=== PATIENT | female | born 1970 | race American Indian/Alaskan Native ===

== ENCOUNTER 2017-10-09 21:17 | Emergency (ER) | payer OTHER ==
[2017-10-09] MEDS ORDERED: METOCLOPRAMIDE HCL INJECTION 10 MG/2 ML VIAL IVPUSH ONE (21:41)
[2017-10-09] MEDS ORDERED: SODIUM CHLORIDE 1,000 ML IV STA (21:41)
[2017-10-09] MEDS ORDERED: HYDROmorphone HCL CARPU-JECT 1 MG/1 ML DISP.SYRIN IVPB ONE ×2 (21:41→22:53)
--- NOTE | 2017-10-09 21:46 | PDOC ---
History of Present Illness - General History Source: Patient Exam Limitations: No Limitations <Gabriel Beckford - Last Filed: 10/09/17 21:42> - General History Source: Patient Exam Limitations: No Limitations - History of Present Illness Initial Comments: 10/09/17 21:48 The patient is a 46 year old female with a significant past medical history of severe migraines with frequent migraine exacerbations who presents to the ED with a headache for several days. The patient reports a constant sharp left sided headache with associated photophobia. Patient also reports one episode of nausea and vomiting since earlier today. The patient live in [place] and is currently visiting. Patient is a cousin of Dr. Trevizo Denies fever or chills. Denies neck stiffness. Denies chest pain or shortness of breath. Denies abdominal pain or diarrhea. Denies any other symptoms. <Rasta Beaver - Last Filed: 10/09/17 21:48> - General Stated Complaint: MIGRAINE Time Seen by Provider: 10/09/17 21:36 Review of Systems - Review of Systems Able to Perform ROS?: Yes Comments:: 10/09/17 21:48 GENERAL/CONSTITUTIONAL: No fever or chills. No weakness. HEAD, EYES, EARS, NOSE AND THROAT: No change in vision. No ear pain or discharge. No sore throat. CARDIOVASCULAR: No chest pain or shortness of breath. RESPIRATORY: No cough, wheezing, or hemoptysis. GASTROINTESTINAL: + nausea, vomiting No diarrhea or constipation. GENITOURINARY: No dysuria, frequency, or change in urination. MUSCULOSKELETAL: No joint or muscle swelling or pain. No neck or back pain. SKIN: No rash NEUROLOGIC: + headache, photophobia No vertigo, loss of consciousness, or change in strength/sensation. ENDOCRINE: No increased thirst. No abnormal weight change. HEMATOLOGIC/LYMPHATIC: No anemia, easy bleeding, or history of blood clots. ALLERGIC/IMMUNOLOGIC: No hives or skin allergy. All Other Systems: Reviewed and Negative <Rasta Beaver - Last Filed: 10/09/17 21:48> *Physical Exam - Physical Exam Comments: 10/09/17 21:48 GENERAL: Awake, alert, and fully oriented, in no acute distress HEAD: No signs of trauma EYES: PERRLA, EOMI, sclera anicteric, conjunctiva clear ENT: Auricles normal inspection, hearing grossly normal, nares patent, oropharynx clear without exudates. Moist mucosa NECK: Normal ROM, supple, no lymphadenopathy, JVD, or masses LUNGS: Breath sounds equal, clear to auscultation bilaterally. No wheezes, and no crackles HEART: Regular rate and rhythm, normal S1 and S2, no murmurs, rubs or gallops ABDOMEN: Soft, nontender, normoactive bowel sounds. No guarding, no rebound. No masses EXTREMITIES: Normal range of motion, no edema. No clubbing or cyanosis. No cords, erythema, or tenderness NEUROLOGICAL: + 2-12 cranial nerves intact. 5/5 strength in upper and lower extremities intact throughout. speech normal gait normal. SKIN: Warm, Dry, normal turgor, no rashes or lesions noted. <Rasta Beaver - Last Filed: 10/09/17 21:48> Medical Decision Making - Medical Decision Making 10/09/17 21:42 A portion of this note was documented by scribe services under my direction. I have reviewed the details of the note, within reason, and agree with the documentation with the following case summary and management plan written by me. Patient treated in the ED. Nursing notes are reviewed and incorporated into the medical decision-making. Vital signs reviewed. Peripheral IV access obtained by the nurse, laboratory studies are drawn and sent, reviewed and interpreted by myself. 46-year-old female with past medical history of severe migraines with frequent migraine exacerbations presents with migraines. The patient has had several days of left-sided headaches with associated photophobia consistent with her primary migraine. Patient is from [place] and is a cousin of Dr. Jameel Trevizo (who is accompanying the patient). The patient has one episode of nausea vomiting. Denies fevers or chills or neck stiffness. Patient reports that she typically needs dilaudid or Demerol and an anti-emetic for headache. This is likely refractory migraines. We'll write Dilaudid and Reglan and IV fluids and reassess. <Gabriel Beckford - Last Filed: 10/09/17 21:42> *DC/Admit/Observation/Transfer - Attestations Scribe Attestion: 10/09/17 21:48 Documentation prepared by Rasta Beaver, acting as medical terminologist for Gabriel Beckford MD <Rasta Beaver - Last Filed: 10/09/17 21:48>
[2017-10-09 21:57] VITALS: TEMP 97.6; BMI 34.5
[2017-10-09] MEDS ORDERED: METOCLOPRAMIDE HCL INJECTION 10 MG/2 ML VIAL ONE (22:05)
[2017-10-09] MEDS ORDERED: HYDROmorphone HCL CARPU-JECT 1 MG/1 ML DISP.SYRIN ONE ×2 (22:05→23:31)
[2017-10-09 22:21] LABS: BASOPHIL 0.8 % (0-2.0); EOSINOPHIL 2.1 % (0-4.5); MCH 28.9 pg (25.7-33.7); MCHC 34.1 g/dl (32.0-36.0); MEAN CELL VOLUME 84.7 fl (80-96); MEAN PLT VOLUME 7.8 fl (7.5-11.1); NEUTROPHILS 38.9 % (42.8-82.8); PLATELET COUNT 256 K/MM3 (134-434); WHITE BLOOD COUNT 6.7 K/mm3 (4.0-10.0)
[2017-10-09 22:46] LABS: ALBUMIN 3.3 g/dl (3.4-5.0); ALK PHOS 88 U/L (45-117); ANION GAP 6 (8-16); BILIRUBIN,TOTAL 0.2 mg/dL (0.2-1.0); CALCIUM 8.2 mg/dL (8.5-10.1); CO2 30 mmol/L (21-32); CREATININE 0.7 mg/dL (0.55-1.02); GLUCOSE,RANDOM 128 mg/dL (74-106); SGOT/AST 17 U/L (15-37); SGPT/ALT 24 U/L (12-78); TOT PROT 6.6 g/dl (6.4-8.2)
[2017-10-09] MEDS ORDERED: KETOROLAC TROMETHAMINE 30 MG/1 ML VIAL IVPUSH ONE (22:55)
[2017-10-09] MEDS ORDERED: KETOROLAC TROMETHAMINE 30 MG/1 ML VIAL ONE (23:31)
--- NOTE | 2017-10-09 23:44 | PDOC ---
*Physical Exam - Vital Signs Last Vital Signs Temp Pulse Resp BP Pulse Ox 97.6 F 66 18 147/103 95 10/09/17 21:53 10/09/17 21:53 10/09/17 21:53 10/09/17 21:53 10/09/17 21:53 ED Treatment Course - LABORATORY CBC & Chemistry Diagram: 10/09/17 22:00 10/09/17 22:00 - ADDITIONAL ORDERS Additional order review: Laboratory Results 10/09/17 10/09/17 22:00 22:00 Sodium 139 Potassium 4.0 Chloride 103 Carbon Dioxide 30 Anion Gap 6 L BUN 18 Creatinine 0.7 Creat Clearance w eGFR > 60 Random Glucose 128 H Calcium 8.2 L Total Bilirubin 0.2 AST 17 ALT 24 Alkaline Phosphatase 88 Total Protein 6.6 Albumin 3.3 L Serum , Qual Negative 10/09/17 22:00 RBC 4.41 MCV 84.7 MCHC 34.1 RDW 13.0 MPV 7.8 Neutrophils % 38.9 L Lymphocytes % 50.8 H Monocytes % 7.4 Eosinophils % 2.1 Basophils % 0.8 - Medications Given in the ED: ED Medications Discontinued Medications Generic Name Dose Route Start Last Admin Trade Name Freq PRN Reason Stop Dose Admin Hydromorphone HCl 1 mg 10/09/17 21:41 10/09/17 22:20 Dilaudid Injection - IVPB 10/09/17 21:42 1 mg ONCE ONE Administration Sodium Chloride 1,000 mls @ 1,000 mls/hr 10/09/17 21:41 10/09/17 22:20 Normal Saline - IV 10/09/17 22:40 1,000 mls/hr ASDIR STA Administration Metoclopramide HCl 10 mg 10/09/17 21:41 10/09/17 22:20 Reglan Injection - IVPUSH 10/09/17 21:42 10 mg ONCE ONE Administration Medical Decision Making - Medical Decision Making 10/09/17 23:42 Pt signed out to me by Dr. Beckford as migraine typical of her chronic migraine. LAbs are within normal limits. Patient is now feeling better and asking to go home. Will discharge home. 10/09/17 23:44 *DC/Admit/Observation/Transfer Diagnosis at time of Disposition: Migraine Qualifiers: Migraine type: unspecified Status migrainosus presence: without status migrainosus Intractability: not intractable Qualified Code(s): G43.909 - Migraine, unspecified, not intractable, without status migrainosus - Discharge Dispostion Disposition: HOME Admit: No - Referrals Referrals: STAFF,NOT ON [Primary Care Provider] - - Patient Instructions Printed Discharge Instructions: DI for Migraine Additional Instructions: return to the ED for severe headache, headache that is different from your typical migraine, headache with fever, severe nausea and vomiting. Follow up with your doctor when you get home. - Post Discharge Activity
[2017-10-10 00:01] VITALS: PULSE 60
[2017-10-10 00:08] VITALS: BP 130/100
== END 2017-10-10 | disposition home or self-care (01) ==
LOC: JER 21:17
PROC: 3E033NZ Introduction of Analgesics, Hypnotics, Sedatives into Peripheral Vein, Percutaneous Approach (ICD-10-PCS; principal; 2017-10-09)
PROC: 3E033NZ Introduction of Analgesics, Hypnotics, Sedatives into Peripheral Vein, Percutaneous Approach (ICD-10-PCS; 2017-10-09)
PROC: 3E0333Z Introduction of Anti-inflammatory into Peripheral Vein, Percutaneous Approach (ICD-10-PCS; 2017-10-09)
PROC: 3E033GC Introduction of Other Therapeutic Substance into Peripheral Vein, Percutaneous Approach (ICD-10-PCS; 2017-10-09)
DX: G43.909 Migraine, unspecified, not intractable, without status migrainosus (principal)
CPT/HCPCS: 36415; 80053; 84703; 85025; 99284-25